=== PATIENT | male | born 1950 | race Hispanic/Latino ===

== ENCOUNTER → 2020-03-01 | Day surgery (SDC) | payer MEDICARE, OTHER ==
[2020-02-27 14:40] LABS: BASOPHILS % 0.5 % (0.0-1.0); EOSINOPHILS # (AUTO) 0.3 (0.0-0.4); EOSINOPHILS % 4.5 % (0.0-6.0); HEMATOCRIT 35.4 % (38.2-49.6); HEMOGLOBIN 11.8 g/dL (14.0-18.0); LYMPHOCYTES # (AUTO) 1.7 (1.0-3.2); LYMPHOCYTES % 26.4 % (18.0-39.1); MEAN CORPUSCULAR HEMOGLOBIN 30.5 pg (28-32); MEAN CORPUSCULAR HGB CONC 33.3 g/dL (31-35); MEAN CORPUSCULAR VOLUME 91.5 fL (81-99); MONOCYTES # (AUTO) 0.6 (0.2-0.8); MONOCYTES % 9.1 % (4.4-11.3); NEUTROPHILS # (AUTO) 3.7 (2.1-6.9); NEUTROPHILS % 59.3 % (38.7-80.0); PLATELET COUNT 217 x10e3/uL (140-360); RED BLOOD COUNT 3.87 x10e6/uL (4.3-5.7)
[2020-02-27 14:59] LABS: ALANINE AMINOTRANSFERASE 17 IU/L (0-55); ALBUMIN/GLOBULIN RATIO 1.3 (0.8-2.0); ALKALINE PHOSPHATASE 81 IU/L (40-150); ANION GAP 13.3 mmol/L (8-16); BLOOD UREA NITROGEN 15 mg/dL (7-26); BUN/CREATININE RATIO 13 (6-25); CALCIUM 9.3 mg/dL (8.4-10.2); CARBON DIOXIDE 28 mmol/L (22-29); CHLORIDE 104 mmol/L (98-107); CREATININE, SERUM 1.14 mg/dL (0.72-1.25); EST GLOMERULAR FILTRATION RATE > 60 ML/MIN (60-); GLUCOSE 144 mg/dL (74-118); POTASSIUM 4.3 mmol/L (3.5-5.1); SODIUM 141 mmol/L (136-145)
[~2020-03-01] MED LIST: BUPIVACAINE 0.25% 30ML SDV INJ ONE; DEXAMETHASONE SOD PHOS INJ 4 MG/ML VIAL ONE; EPHEDRINE SULFATE INJ 50 MG/ML VIAL ONE; FENTANYL CITRATE/PF 100MCG/2 ML INJ ONE; GLYCOPYRROLATE INJ 0.2 MG/ML VIAL ONE; HYDROCODONE/APAP 7.5MG-325MG 1 EA TAB ONE; LIDOCAINE 1% W/EPINEPHRINE 20 ML VIAL ONE; LIDOCAINE HCL 2% LOCAL INJ 5 ML SDV VIAL INJ ONE; LIPITOR10 MG PO; LOSARTAN POTAS100 MG PO; METFORMIN HCL500 MG PO; MIDAZOLAM HCL 2 MG/2 ML VIAL ONE; NEOSTIGMINE 1 MG/ML 10ML VIAL ONE; ONDANSETRON HCL INJ 2MG/ML 2ML 2 MG/ML VIAL ONE; PROPOFOL IV EMULSION 10 MG/ML 20 ML VIAL ONE; ROCURONIUM BROMIDE 10 MG/ML 5ML VIAL IV ONE; SEVOFLURANE INHAL SOLN 250 ML PEN BTL ONE
--- NOTE | 2020-03-01 07:16 | NUR ---
SPIRITUAL CARE - Pre-Surgery Assessment: Pt in bed. Pt's granddaughter at bedside. Pt reported supportive attention from family and friends. Intervention: Provided pastoral presence, hospitality, and empathetic listening. Network Support Technician acquainted pt with availability of fuselage framer while hospitalized. Outcome: Pt expressed appreciation for visit. No need for follow up indicated at this time. FLORENTINO [facility] Spiritual Care Department O: [phone]
[2020-03-01 11:15] VITALS: BP 177/84
--- NOTE | 2020-03-01 18:14 | Operative Report ---
DATE OF PROCEDURE: 03/01/2020 SURGEON: Armando Cheatham MD PREOPERATIVE DIAGNOSES: 1. Large gallstone. 2. Diabetes. POSTOPERATIVE DIAGNOSES: 1. Large gallstone. 2. Diabetes. 3. Chronic cholecystitis. PROCEDURE PERFORMED: Laparoscopic cholecystectomy. AUTOMOBILE DESIGNER: Piper Davis. ESTIMATED BLOOD LOSS: Minimal. DRAINS: None. COMPLICATIONS: None. INDICATION AND FINDINGS: The patient is a pleasant 69-year-old male, who was found to have a very large gallstone on chest x-ray. Ultrasound confirmed the presence of the stone in the gallbladder. There was no ductal dilatation. INTRAOPERATIVE FINDINGS: The patient had a 3-cm gallstone in the area of the neck of the gallbladder measured at least 3 cm. There was some mild thickening of the gallbladder wall. All of this is consistent with chronic cholecystitis. This patient is diabetic. DESCRIPTION OF PROCEDURE: With the patient lying on the operative table in the supine position after administration of general anesthesia, he was prepped and draped for laparoscopic cholecystectomy. The procedure was begun by establishing the pneumoperitoneum in the umbilical site after stab wound was made in the location and saline drop test was performed. Pneumoperitoneum was insufflated to 15 mm of pressure and then the 10/11 trocar placed in that location. The patient was rotated to the left and with the head up and then we placed a 10/11 subxiphoid port and then finally two lateral working ports in the right upper quadrant using 5 mm trocars in the right midclavicular line, right anterior axillary line. We eventually had to place a 5th trocar in the left upper quadrant. They were to expose the operative field. After we placed the subxiphoid port and the remaining ports, we went ahead and retracted the gallbladder, which was rather long, contain a large stone that was in the body and neck of the gallbladder. I began the dissection high in the neck of the gallbladder until we identified the cystic duct and then transected between titanium clips as the full visualization of the junction with the common bile duct. We then continued the dissection. We found right hepatic artery that was giving off the main cystic artery that was transected between titanium clips also. We found then two other branches that were clipped and cauterized. Then, the gallbladder was taken down from the liver bed using electrocautery dissection. The gallbladder was then placed in an endobag and removed. We had to enlarge the opening because of the large size of the stone. Then, under direct vision with the camera, we closed the large umbilical fascial defect using 0 Vicryl, four of those. After we did that, we inspected the operative field. There was some minor oozing coming from the gallbladder, which was cauterized and then we placed a Surgicel in that location. After we ascertained that there was no bile leak, no bladder nor any apparent bowel injury, we went ahead and closed the wound using 0-Vicryl for the umbilical fascia, 3-0 Vicryl for the subcutaneous tissue in that location as well as the subxiphoid port and the skin of all the ports was closed using 3-0 silk. Sterile dressing was applied. The patient tolerated the procedure well, taken to recovery room in stable condition. MD LIVAN Saeed/JETHRO /[id number]
== END | disposition home or self-care (01) ==
LOC: OR 05:51
PROVIDERS: ATTEND Surgery
DX: K80.10 Calculus of gallbladder with chronic cholecystitis without obstruction (principal); E11.9 Type 2 diabetes mellitus without complications; I10 Essential (primary) hypertension; Z88.8 Allergy status to other drugs, medicaments and biological substances; Z01.810 Encounter for preprocedural cardiovascular examination; Z01.812 Encounter for preprocedural laboratory examination; Z11.59 Encounter for screening for other viral diseases; Z68.31 Body mass index [BMI] 31.0-31.9, adult
CPT/HCPCS: 36415 ×2; 47562; 80053; 82948; 85025; 87635; 88304; 93005; C1766; J1100; J2001; J2250; J2405; J2704; J2710; J3010